=== PATIENT | male | born 1975 | race Caucasian/White ===

== ENCOUNTER 2016-09-12 09:06 | Inpatient (IN) | payer BC ==
[2016-09-12 09:52] VITALS: BMI 25.2
[2016-09-12] MEDS ORDERED: LOPERAMIDE HCL 2 MG CAPSULE PO PRN (11:24)
[2016-09-12] MEDS ORDERED: MAGNESIUM CITRATE 300 ML BOTTLE PO PRN (11:24)
[2016-09-12] MEDS ORDERED: NICOTINE POLACRILEX 2 MG GUM BUC PRN (11:24)
[2016-09-12] MEDS ORDERED: hydrOXYzine PAMOATE 50 MG CAPSULE (FP) PO PRN (11:24)
[2016-09-12] MEDS ORDERED: MAGNESIUM HYDROX 2400MG/30ML ORAL SUSPENSION 30 ML CUP PO PRN (11:24)
[2016-09-12] MEDS ORDERED: ACETAMINOPHEN 325 MG TABLET (FP) PO PRN (11:24)
[2016-09-12] MEDS ORDERED: guaiFENesin/D-METHORPHAN HB 10 ML UNIT-DOSE CUPS PO PRN (11:24)
[2016-09-12] MEDS ORDERED: MENTHOL/PHENOL 1 EACH UD MM PRN (11:24)
[2016-09-12] MEDS ORDERED: P-EPHED 60MG/TRIPROLIDI 2.5MG TABLET PO PRN (11:24)
[2016-09-12] MEDS ORDERED: ALBUTEROL SO4 6.7 GM HFA INHALER IH PRN (11:27)
--- NOTE | 2016-09-12 11:37 | HP ---
COWS - Scale Resting Pulse: 2= [place] 101-120 Sweatin=Flushed/Facial Moisture Restless Observation: 1= Difficult to Sit Still Pupil Size: 2= Moderately Dilated Bone or Joint Aches: 2= Severe Diffuse Aches Runny Nose/ Eye Tearin= Runny Nose/Eyes GI Upset > 30mins: 2= Nausea/Diarrhea Tremor Observation: 2= Slight Tremor Visible Yawning Observation: 1= 1-2x During Session Anxiety or Irritability: 2=Irritable/Anxious Goose Flesh Skin: 0=Smooth Skin COWS Score: 18 CIWA Score - CIWA Score Nausea/Vomitin-Mild Nausea/No Vomiting Muscle Tremors: 3 Anxiety: 2 Agitation: 2 Paroxysmal Sweats: 2 Orientation: 0-Oriented Tacttile Disturbances: 0-None Auditory Disturbances: 0-None Visual Disturbances: 0-None Headache: 0-None Present CIWA-Ar Total Score: 10 Admission ROS BHS - HPI Chief Complaint: Withdrawal sx. Allergies/Adverse Reactions: Allergies Allergy/AdvReac Type Severity Reaction Status Date / Time No Known Allergies Allergy Verified 09/12/16 11:09 History of Present Illness: 40 y/o man with a long hx. of drug & alcohol dependence is admitted for detox. Pt. has been in previous detox but relapsed shortly after d/c. Pt. does not want to be put on librium for alcohol detox because he does not drink that much, he'll take PRN valium. He had brain surgery in January 2016 for aneurysm. Exam Limitations: No Limitations - Ebola screening Have you traveled outside of the country in the last 21 days: No Have you had contact with anyone from an Ebola affected area: No Have you been sick,other than usual withdrawal symptoms: No Do you have a fever: No - Review of Systems Constitutional: Diaphoresis EENT: reports: Tearing, Nose Congestion Respiratory: reports: No Symptoms reported Cardiac: reports: No Symptoms Reported GI: reports: Nausea, Abdominal cramping : reports: No Symptoms Reported Musculoskeletal: reports: Back Pain, Joint Pain Integumentary: reports: Sweating Neuro: reports: Tremors, Unsteady Gait Endocrine: reports: No Symptoms Reported Hematology: reports: No Symptoms Reported Psychiatric: reports: No Sypmtoms Reported Other Systems: Reviewed and Negative Patient History - Patient Medical History Hx Anemia: No Hx Asthma: Yes Hx Chronic Obstructive Pulmonary Disease (COPD): No Hx Cancer: No Hx Cardiac Disorders: No Hx Congestive Heart Failure: No Hx Hypertension: No Hx Hypercholesterolemia: No Hx Pacemaker: No HX Cerebrovascular Accident: No Hx Seizures: No Hx Diabetes: No Hx Gastrointestinal Disorders: No Hx Liver Disease: No Hx Genitourinary Disorders: No Hx Sexually Transmitted Disorders: No Hx Renal Disease (ESRD): No Hx Thyroid Disease: No Hx Human Immunodeficiency Virus (HIV): No Hx Hepatitis C: No Hx Depression: No Hx Suicide Attempt: No Hx Bipolar Disorder: No Hx Schizophrenia: No Other Medical History: Brain aneurysm - Patient Surgical History Past Surgical History: Yes Hx Neurologic Surgery: Yes (brain sx in 01/2016) Hx Cataract Extraction: No Hx Cardiac Surgery: No Hx Lung Surgery: No Hx Breast Surgery: No Hx Breast Biopsy: No Hx Abdominal Surgery: No Hx Appendectomy: No Hx Cholecystectomy: No Hx Genitourinary Surgery: No Hx Section: No Hx Orthopedic Surgery: No Anesthesia Reaction: No - PPD History Previous Implant?: Yes Documented Results: Positive w/o proof Implanted On Prior R Admission?: No PPD to be Administered?: No - Smoking Cessation Smoking history: Current every day smoker Have you smoked in the past 12 months: Yes Aproximately how many cigarettes per day: 10 Hx Chewing Tobacco Use: No Initiated information on smoking cessation: No 'Breaking Loose' booklet given: 09/12/16 - Substance & Tx. History Hx Alcohol Use: Yes Hx Substance Use: Yes Substance Use Type: Alcohol, Cocaine, Heroin Hx Substance Use Treatment: Yes (Detox in [place]) - Substances Abused Heroin Route: Injection Frequency: Daily Amount used: 10 bags Age of first use: 38 Date of Last Use: 09/11/16 Cocaine Route: Injection Frequency: Daily Amount used: $50 Age of first use: 38 Date of Last Use: 09/11/16 Alcohol-beer Route: Oral Frequency: Daily Amount used: 2 (25 oz.) Age of first use: 14 Date of Last Use: 09/11/16 Family Disease History - Family Disease History Family History: Denies Admission Physical Exam BHS - Vital Signs Vital Signs: Vital Signs - 24 hr 09/12/16 09:49 Temperature 96 F L Pulse Rate 102 H Respiratory 20 Rate Blood Pressure 132/76 - Physical General Appearance: Yes: Tremorous, Irritable, Sweating, Anxious HEENTM: Yes: Nasal Congestion, Rhinorrhea Respiratory: Yes: Chest Non-Tender, Lungs Clear, Normal Breath Sounds Neck: Yes: Supple Breast: Yes: Breast Exam Deferred Cardiology: Yes: Regular Rhythm, Regular Rate, S1, S2 Abdominal: Yes: Normal Bowel Sounds, Non Tender, Soft Genitourinary: Yes: Within Normal Limits Back: Yes: Within Normal Limits Musculoskeletal: Yes: Within Normal Limits Extremities: Yes: Tremors Neurological: Yes: Fully Oriented, Alert Integumentary: Yes: Diaphoresis Lymphatic: Yes: Within Normal Limits - Diagnostic (1) Opioid dependence with withdrawal Current Visit: Yes Status: Acute (2) Alcohol dependence with uncomplicated withdrawal Current Visit: Yes Status: Acute (3) Cocaine dependence, uncomplicated Current Visit: Yes Status: Acute Cleared for Admission [facility] - Detox or Rehab [facility] Level of Care: Medically Managed Detox Regimen/Protocol: Methadone [facility] Breath Alcohol Content Breath Alcohol Content: 0 Urine Drug Screen - Results Drug Screen Negative: No Urine Drug Screen Results: SHAINA-Cocaine, OPI-Opiates, BZO-Benzodiazepines, MTD- Methadone, TCA-Tricyclic Antidepress
[2016-09-12] MEDS ORDERED: METHADONE HCL 10 MG TABLET (FOR DETOX USE ONLY) PO ONE ×2 (12:44→23:00)
[2016-09-12] MEDS: GABAPENTIN 400 MG CAPSULE (FP) PO SCH ×3 (13:12→22:55)
[2016-09-12] MEDS: diazePAM 5 MG TABLET PO PRN (13:12)
[2016-09-12] MEDS: NICOTINE 21 MG/24 HOURS TOPICAL PATCH TD SCH (13:14)
--- NOTE | 2016-09-12 15:07 | EKG ---
Test Reason : Blood Pressure : / mmHG Vent. Rate : 087 BPM Atrial Rate : 087 BPM P-R Int : 142 ms QRS Dur : 076 ms QT Int : 360 ms P-R-T Axes : 054 043 047 degrees QTc Int : 433 ms NORMAL SINUS RHYTHM NORMAL ECG NO PREVIOUS ECGS AVAILABLE Confirmed by JAMES ISRAEL MD ([id number]) on 09/12/2016 3:07:22 PM Referred By: Nicko Chavez Confirmed By:JAMES ISRAEL MD
[2016-09-12 15:32] LABS: URINE APPEARANCE CLEAR; URINE BILIRUBIN NEGATIVE (NEGATIVE); URINE BLOOD NEGATIVE (NEGATIVE); URINE COLOR YELLOW; URINE GLUCOSE (UA) NEGATIVE (NEGATIVE); URINE KETONE NEGATIVE (NEGATIVE); URINE LEUK ESTERASE NEGATIVE (NEGATIVE); URINE NITRITE NEGATIVE (NEGATIVE); URINE PROTEIN NEGATIVE (NEGATIVE)
[2016-09-12] MEDS: IBUPROFEN 400 MG TABLET (FP) PO PRN (17:29)
[2016-09-12] MEDS: THIAMINE HCL 100 MG TABLET (FP) PO SCH (22:55)
[2016-09-13] MEDS: diazePAM 5 MG TABLET PO PRN ×3 (06:32→22:20)
[2016-09-13 09:57] LABS: MCH 30.8 pg (25.7-33.7); MCHC 32.5 g/dl (32.0-35.9); MEAN CELL VOLUME 94.9 fl (80-96); MEAN PLT VOLUME 10.1 fl (7.5-11.1); PLATELET COUNT 242 K/MM3 (134-434); RDW 13.5 % (11.9-15.9); WHITE BLOOD COUNT 12.3 K/mm3 (4.0-10.0)
[2016-09-13] MEDS ORDERED: METHADONE HCL 10 MG TABLET (FOR DETOX USE ONLY) PO ONE (10:00)
[2016-09-13 10:15] LABS: ALBUMIN 3.7 g/dl (3.4-5.0); ALK PHOS 72 U/L (45-117); ANION GAP 6 (8-16); BILIRUBIN,TOTAL 0.8 mg/dL (0.2-1.0); CALCIUM 9.8 mg/dL (8.5-10.1); CO2 30 mmol/L (21-32); CREATININE 1.1 mg/dL (0.7-1.3); GLUCOSE,RANDOM 126 mg/dL (74-106); SGOT/AST 188 U/L (15-37); SGPT/ALT 284 U/L (12-78); TOT PROT 7.6 g/dl (6.4-8.2)
[2016-09-13] MEDS: GABAPENTIN 400 MG CAPSULE (FP) PO SCH ×4 (10:41→22:20)
[2016-09-13] MEDS: PRENATAL VITAMINS W/ FOLIC ACID TABLET (FP) PO SCH (10:41)
[2016-09-13] MEDS: NICOTINE 21 MG/24 HOURS TOPICAL PATCH TD SCH (10:42)
[2016-09-13 11:39] LABS: SICKLE CELL SCREEN NEGATIVE (NEGATIVE)
--- NOTE | 2016-09-13 12:16 | PN ---
[facility] CIWA - CIWA Score Nausea/Vomitin-No Nausea/No Vomiting Muscle Tremors: 4-Moderate,w/Arms Extend Anxiety: 4-Mod. Anxious/Guarded Agitation: 4-Moderately Restless Paroxysmal Sweats: 1-Minimal Palms Moist Orientation: 0-Oriented Tacttile Disturbances: 3-Moderate Itch/Numb/Burn Auditory Disturbances: 0-None Visual Disturbances: 0-None Headache: 0-None Present CIWA-Ar Total Score: 16 S COWS - Scale Resting Pulse: 2= [place] 101-120 Sweatin= Chills/Flushing Restless Observation: 3= Extraneous Movement Pupil Size: 2= Moderately Dilated Bone or Joint Aches: 4=Acute Joint/Muscle Pain Runny Nose/ Eye Tearin= Nasal Congestion GI Upset > 30mins: 1= Stomach Cramp Tremor Observation of Outstretched Hands: 1= Tremor [place], Not Seen Yawning Observation: 2= >3x During Session Anxiety or Irritability: 2=Irritable/Anxious Goose Flesh Skin: 0=Smooth Skin COWS Score: 19 [facility] Progress Note (SOAP) Subjective: ANXIETY,SWEATS,TREMORS, INTERMITTENT SLEEP Objective: 09/13/16 12:14 Vital Signs Temperature 97.1 F L 09/13/16 10:11 Pulse Rate 109 H 09/13/16 10:11 Respiratory Rate 16 09/13/16 10:11 Blood Pressure 111/72 09/13/16 10:11 O2 Sat by Pulse Oximetry (%) Laboratory Last Values WBC 12.3 K/mm3 (4.0-10.0) H 09/13/16 06:00 RBC 5.36 M/mm3 (4.00-5.60) 09/13/16 06:00 Hgb 16.5 GM/dL (11.7-16.9) 09/13/16 06:00 Hct 50.9 % (35.4-49) H 09/13/16 06:00 MCV 94.9 fl (80-96) 09/13/16 06:00 MCH 30.8 pg (25.7-33.7) 09/13/16 06:00 MCHC 32.5 g/dl (32.0-35.9) 09/13/16 06:00 RDW 13.5 % (11.9-15.9) 09/13/16 06:00 Plt Count 242 K/MM3 (134-434) 09/13/16 06:00 MPV 10.1 fl (7.5-11.1) 09/13/16 06:00 Sickle Cell Screen Negative (NEGATIVE) 09/13/16 06:00 Sodium 138 mmol/L (136-145) 09/13/16 06:00 Potassium 5.2 mmol/L (3.5-5.1) H 09/13/16 06:00 Chloride 102 mmol/L (98-107) 09/13/16 06:00 Carbon Dioxide 30 mmol/L (21-32) 09/13/16 06:00 Anion Gap 6 (8-16) L 09/13/16 06:00 BUN 21 mg/dL (7-18) H 09/13/16 06:00 Creatinine 1.1 mg/dL (0.7-1.3) 09/13/16 06:00 Creat Clearance w eGFR > 60 (>60) 09/13/16 06:00 Random Glucose 126 mg/dL (74-106) H 09/13/16 06:00 Calcium 9.8 mg/dL (8.5-10.1) 09/13/16 06:00 Total Bilirubin 0.8 mg/dL (0.2-1.0) 09/13/16 06:00 AST 188 U/L (15-37) H 09/13/16 06:00 ALT 284 U/L (12-78) H 09/13/16 06:00 Alkaline Phosphatase 72 U/L (45-117) 09/13/16 06:00 Total Protein 7.6 g/dl (6.4-8.2) 09/13/16 06:00 Albumin 3.7 g/dl (3.4-5.0) 09/13/16 06:00 Urine Color Yellow 09/12/16 13:00 Urine Appearance Clear 09/12/16 13:00 Urine pH 6.0 (5.0-8.0) 09/12/16 13:00 Ur Specific [place] 1.025 (1.005-1.025) 09/12/16 13:00 Urine Protein Negative (NEGATIVE) 09/12/16 13:00 Urine Glucose (UA) Negative (NEGATIVE) 09/12/16 13:00 Urine Ketones Negative (NEGATIVE) 09/12/16 13:00 Urine Blood Negative (NEGATIVE) 09/12/16 13:00 Urine Nitrite Negative (NEGATIVE) 09/12/16 13:00 Urine Bilirubin Negative (NEGATIVE) 09/12/16 13:00 Urine Urobilinogen 2.0 mg/dL (0.2-1.0) 09/12/16 13:00 Ur Leukocyte Esterase Negative (NEGATIVE) 09/12/16 13:00 LABS NOTED. K+ = 5.2; AST/ALT ELEVATIONS Assessment: 09/13/16 12:16 WITHDRAWAL SX Plan: CONTINUE DETOX INCREASE PO FLUIDS
[2016-09-13] MEDS: IBUPROFEN 400 MG TABLET (FP) PO PRN (14:13)
[2016-09-13] MEDS: THIAMINE HCL 100 MG TABLET (FP) PO SCH (22:20)
[2016-09-13] MEDS: CYCLOBENZAPRINE HCL 10 MG TABLET (FP) PO PRN (22:20)
[2016-09-14] MEDS ORDERED: METHADONE HCL 5 MG TABLET (FOR DETOX USE ONLY) PO ONE (10:00)
[2016-09-14 10:02] LABS: MCH 31.2 pg (25.7-33.7); MCHC 33.3 g/dl (32.0-35.9); MEAN CELL VOLUME 93.6 fl (80-96); MEAN PLT VOLUME 9.5 fl (7.5-11.1); PLATELET COUNT 195 K/MM3 (134-434); RDW 13.2 % (11.9-15.9); WHITE BLOOD COUNT 5.3 K/mm3 (4.0-10.0)
[2016-09-14 10:27] LABS: ALBUMIN 2.7 g/dl (3.4-5.0); ALK PHOS 62 U/L (45-117); ANION GAP 3 (8-16); BILIRUBIN,TOTAL 0.3 mg/dL (0.2-1.0); CALCIUM 8.3 mg/dL (8.5-10.1); CO2 28 mmol/L (21-32); CREATININE 0.7 mg/dL (0.7-1.3); GLUCOSE,RANDOM 99 mg/dL (74-106); SGOT/AST 172 U/L (15-37); SGPT/ALT 294 U/L (12-78)
[2016-09-14] MEDS: PRENATAL VITAMINS W/ FOLIC ACID TABLET (FP) PO SCH (10:31)
[2016-09-14] MEDS: GABAPENTIN 400 MG CAPSULE (FP) PO SCH ×4 (10:31→22:08)
[2016-09-14] MEDS: NICOTINE 21 MG/24 HOURS TOPICAL PATCH TD SCH (10:32)
[2016-09-14] MEDS: CYCLOBENZAPRINE HCL 10 MG TABLET (FP) PO PRN ×2 (13:33→22:08)
[2016-09-14] MEDS: IBUPROFEN 400 MG TABLET (FP) PO PRN (13:33)
[2016-09-14] MEDS: MAG HYDROX/AL HYDROX/SIMETH 30 ML UNIT-DOSE CUP PO PRN (13:34)
[2016-09-14] MEDS: diazePAM 5 MG TABLET PO PRN (17:42)
--- NOTE | 2016-09-14 18:05 | PN ---
[facility] CIWA - CIWA Score Nausea/Vomitin-No Nausea/No Vomiting Muscle Tremors: 4-Moderate,w/Arms Extend Anxiety: 3 Agitation: 1-Slight > Activity Paroxysmal Sweats: 3 Orientation: 4Disoriented Place/Person Tacttile Disturbances: 0-None Auditory Disturbances: 0-None Visual Disturbances: 2-Mild Sensitivity Headache: 3-Moderate CIWA-Ar Total Score: 20 [facility] COWS - Scale Resting Pulse: 1= [place] [id number] Sweatin=Flushed/Facial Moisture Restless Observation: 1= Difficult to Sit Still Pupil Size: 0= Normal to Room Light Bone or Joint Aches: 2= Severe Diffuse Aches Runny Nose/ Eye Tearin= Runny Nose/Eyes GI Upset > 30mins: 1= Stomach Cramp Tremor Observation of Outstretched Hands: 2= Slight Tremor Visible Yawning Observation: 1= 1-2x During Session Anxiety or Irritability: 2=Irritable/Anxious Goose Flesh Skin: 3=Piloerection COWS Score: 17 [facility] Progress Note (SOAP) Subjective: Tremors, H/A, Sweating, Body Aches. Objective: PT. A & O X (DISORIENTED ABOUT CURRENT LOCATION). PT. OBSERVED AMBULATING ON UNIT. NO ACUTE DISTRESS. 09/14/16 18:03 Vital Signs Temperature 97.5 F L 09/14/16 18:02 Pulse Rate 87 09/14/16 18:02 Respiratory Rate 18 09/14/16 18:02 Blood Pressure 109/60 09/14/16 18:02 O2 Sat by Pulse Oximetry (%) Laboratory Tests 09/12/16 09/13/16 09/13/16 13:00 06:00 06:00 WBC 12.3 H RBC 5.36 Hgb 16.5 Hct 50.9 H MCV 94.9 MCH 30.8 MCHC 32.5 RDW 13.5 Plt Count 242 MPV 10.1 Sickle Cell Screen Negative Sodium 138 Potassium 5.2 H Chloride 102 Carbon Dioxide 30 Anion Gap 6 L BUN 21 H Creatinine 1.1 Creat Clearance w eGFR > 60 Random Glucose 126 H Calcium 9.8 Total Bilirubin 0.8 AST 188 H ALT 284 H Alkaline Phosphatase 72 Total Protein 7.6 Albumin 3.7 Urine Color Yellow Urine Appearance Clear Urine pH 6.0 Ur Specific [place] 1.025 Urine Protein Negative Urine Glucose (UA) Negative Urine Ketones Negative Urine Blood Negative Urine Nitrite Negative Urine Bilirubin Negative Urine Urobilinogen 2.0 Ur Leukocyte Esterase Negative RPR Titer 09/13/16 09/14/16 09/14/16 06:00 08:00 08:00 WBC 5.3 D RBC 4.75 Hgb 14.8 D Hct 44.5 MCV 93.6 MCH 31.2 MCHC 33.3 RDW 13.2 Plt Count 195 MPV 9.5 Sickle Cell Screen Sodium 138 Potassium 4.4 Chloride 107 Carbon Dioxide 28 Anion Gap 3 L BUN 11 D Creatinine 0.7 D Creat Clearance w eGFR > 60 Random Glucose 99 D Calcium 8.3 L Total Bilirubin 0.3 D AST 172 H ALT 294 H Alkaline Phosphatase 62 Total Protein 6.0 L D Albumin 2.7 L D Urine Color Urine Appearance Urine pH Ur Specific [place] Urine Protein Urine Glucose (UA) Urine Ketones Urine Blood Urine Nitrite Urine Bilirubin Urine Urobilinogen Ur Leukocyte Esterase RPR Titer Nonreactive LABS NOTED. RESULTS OF REPEAT CBC AND COMP. META. NOTED. 09/14/16 18:07 Assessment: 09/14/16 18:04 WITHDRAWAL SYMPTOMS. Plan: CONTINUE DETOX.
[2016-09-14] MEDS: THIAMINE HCL 100 MG TABLET (FP) PO SCH (22:07)
[2016-09-15] MEDS: diazePAM 5 MG TABLET PO PRN ×2 (06:01→10:24)
[2016-09-15] MEDS: CYCLOBENZAPRINE HCL 10 MG TABLET (FP) PO PRN (06:02)
[2016-09-15] MEDS ORDERED: METHADONE HCL 5 MG TABLET (FOR DETOX USE ONLY) PO ONE (10:00)
[2016-09-15] MEDS: NICOTINE 21 MG/24 HOURS TOPICAL PATCH TD SCH (10:22)
[2016-09-15] MEDS: GABAPENTIN 400 MG CAPSULE (FP) PO SCH ×4 (10:22→22:13)
[2016-09-15] MEDS: PRENATAL VITAMINS W/ FOLIC ACID TABLET (FP) PO SCH (10:22)
[2016-09-15] MEDS: MAG HYDROX/AL HYDROX/SIMETH 30 ML UNIT-DOSE CUP PO PRN (12:30)
--- NOTE | 2016-09-15 15:22 | PN ---
[facility] Progress Note (SOAP) Subjective: Tremor, diarrhea, back pain, chills, interrupted sleep Objective: 09/15/16 15:20 Last Vital Signs Temp Pulse Resp BP Pulse Ox 97.3 F L 101 H 20 121/73 09/15/16 14:53 09/15/16 14:53 09/15/16 14:53 09/15/16 14:53 Laboratory Tests 09/12/16 09/13/16 09/13/16 13:00 06:00 06:00 WBC 12.3 H RBC 5.36 Hgb 16.5 Hct 50.9 H MCV 94.9 MCH 30.8 MCHC 32.5 RDW 13.5 Plt Count 242 MPV 10.1 Sickle Cell Screen Negative Sodium 138 Potassium 5.2 H Chloride 102 Carbon Dioxide 30 Anion Gap 6 L BUN 21 H Creatinine 1.1 Creat Clearance w eGFR > 60 Random Glucose 126 H Calcium 9.8 Total Bilirubin 0.8 AST 188 H ALT 284 H Alkaline Phosphatase 72 Total Protein 7.6 Albumin 3.7 Urine Color Yellow Urine Appearance Clear Urine pH 6.0 Ur Specific [place] 1.025 Urine Protein Negative Urine Glucose (UA) Negative Urine Ketones Negative Urine Blood Negative Urine Nitrite Negative Urine Bilirubin Negative Urine Urobilinogen 2.0 Ur Leukocyte Esterase Negative RPR Titer 09/13/16 09/14/16 09/14/16 06:00 08:00 08:00 WBC 5.3 D RBC 4.75 Hgb 14.8 D Hct 44.5 MCV 93.6 MCH 31.2 MCHC 33.3 RDW 13.2 Plt Count 195 MPV 9.5 Sickle Cell Screen Sodium 138 Potassium 4.4 Chloride 107 Carbon Dioxide 28 Anion Gap 3 L BUN 11 D Creatinine 0.7 D Creat Clearance w eGFR > 60 Random Glucose 99 D Calcium 8.3 L Total Bilirubin 0.3 D AST 172 H ALT 294 H Alkaline Phosphatase 62 Total Protein 6.0 L D Albumin 2.7 L D Urine Color Urine Appearance Urine pH Ur Specific [place] Urine Protein Urine Glucose (UA) Urine Ketones Urine Blood Urine Nitrite Urine Bilirubin Urine Urobilinogen Ur Leukocyte Esterase RPR Titer Nonreactive Labs noted Assessment: 09/15/16 15:21 Withdrawal symptoms Plan: Continue detox Encouraged to drink lots of water
[2016-09-15] MEDS: THIAMINE HCL 100 MG TABLET (FP) PO SCH (22:13)
[2016-09-15] MEDS: diphenhydrAMINE HCL 50 MG CAPSULE PO PRN (22:14)
[2016-09-16] MEDS ORDERED: METHADONE HCL 10 MG TABLET (FOR DETOX USE ONLY) PO ONE (10:00)
[2016-09-16] MEDS: PRENATAL VITAMINS W/ FOLIC ACID TABLET (FP) PO SCH (10:31)
[2016-09-16] MEDS: NICOTINE 21 MG/24 HOURS TOPICAL PATCH TD SCH (10:31)
[2016-09-16] MEDS: GABAPENTIN 400 MG CAPSULE (FP) PO SCH ×4 (10:31→22:18)
--- NOTE | 2016-09-16 10:43 | PN ---
[facility] Progress Note (SOAP) Subjective: Sweating,interrupted sleep,restless Objective: 09/16/16 10:42 Vital Signs - 8 hr 09/16/16 09/16/16 09/16/16 03:25 07:25 09:16 Temperature 98.4 F 96.5 F L Pulse Rate 92 H 62 Respiratory 18 18 18 Rate Blood Pressure 116/79 140/88 Laboratory Last Values WBC 5.3 K/mm3 (4.0-10.0) D 09/14/16 08:00 RBC 4.75 M/mm3 (4.00-5.60) 09/14/16 08:00 Hgb 14.8 GM/dL (11.7-16.9) D 09/14/16 08:00 Hct 44.5 % (35.4-49) 09/14/16 08:00 MCV 93.6 fl (80-96) 09/14/16 08:00 MCH 31.2 pg (25.7-33.7) 09/14/16 08:00 MCHC 33.3 g/dl (32.0-35.9) 09/14/16 08:00 RDW 13.2 % (11.9-15.9) 09/14/16 08:00 Plt Count 195 K/MM3 (134-434) 09/14/16 08:00 MPV 9.5 fl (7.5-11.1) 09/14/16 08:00 Sickle Cell Screen Negative (NEGATIVE) 09/13/16 06:00 Sodium 138 mmol/L (136-145) 09/14/16 08:00 Potassium 4.4 mmol/L (3.5-5.1) 09/14/16 08:00 Chloride 107 mmol/L (98-107) 09/14/16 08:00 Carbon Dioxide 28 mmol/L (21-32) 09/14/16 08:00 Anion Gap 3 (8-16) L 09/14/16 08:00 BUN 11 mg/dL (7-18) D 09/14/16 08:00 Creatinine 0.7 mg/dL (0.7-1.3) D 09/14/16 08:00 Creat Clearance w eGFR > 60 (>60) 09/14/16 08:00 Random Glucose 99 mg/dL (74-106) D 09/14/16 08:00 Calcium 8.3 mg/dL (8.5-10.1) L 09/14/16 08:00 Total Bilirubin 0.3 mg/dL (0.2-1.0) D 09/14/16 08:00 AST 172 U/L (15-37) H 09/14/16 08:00 ALT 294 U/L (12-78) H 09/14/16 08:00 Alkaline Phosphatase 62 U/L (45-117) 09/14/16 08:00 Total Protein 6.0 g/dl (6.4-8.2) L D 09/14/16 08:00 Albumin 2.7 g/dl (3.4-5.0) L D 09/14/16 08:00 Urine Color Yellow 09/12/16 13:00 Urine Appearance Clear 09/12/16 13:00 Urine pH 6.0 (5.0-8.0) 09/12/16 13:00 Ur Specific [place] 1.025 (1.005-1.025) 09/12/16 13:00 Urine Protein Negative (NEGATIVE) 09/12/16 13:00 Urine Glucose (UA) Negative (NEGATIVE) 09/12/16 13:00 Urine Ketones Negative (NEGATIVE) 09/12/16 13:00 Urine Blood Negative (NEGATIVE) 09/12/16 13:00 Urine Nitrite Negative (NEGATIVE) 09/12/16 13:00 Urine Bilirubin Negative (NEGATIVE) 09/12/16 13:00 Urine Urobilinogen 2.0 mg/dL (0.2-1.0) 09/12/16 13:00 Ur Leukocyte Esterase Negative (NEGATIVE) 09/12/16 13:00 RPR Titer Nonreactive (NONREACTIVE) 09/13/16 06:00 labs noted Assessment: 09/16/16 10:42 Withdrawal sx. Plan: Continue detox
--- NOTE | 2016-09-16 12:22 | PN ---
S Progress Note Note: Occurred on 09/12/16, late entry. Pt. twisted his left ankle and fell on his back. Pt. did not hit his head during incident. Exam : normal ROM left ankle, c/o slight pain during manipulation. X-ray of left ankle is negative for fracture.
[2016-09-16] MEDS: THIAMINE HCL 100 MG TABLET (FP) PO SCH (22:17)
[2016-09-16] MEDS: diphenhydrAMINE HCL 50 MG CAPSULE PO PRN (22:18)
[2016-09-17] MEDS: CYCLOBENZAPRINE HCL 10 MG TABLET (FP) PO PRN ×2 (05:41→17:18)
[2016-09-17] MEDS ORDERED: METHADONE HCL 5 MG TABLET (FOR DETOX USE ONLY) PO ONE (06:00)
[2016-09-17] MEDS: GABAPENTIN 400 MG CAPSULE (FP) PO SCH ×3 (09:06→17:16)
[2016-09-17] MEDS: PRENATAL VITAMINS W/ FOLIC ACID TABLET (FP) PO SCH (09:06)
[2016-09-17] MEDS: NICOTINE 21 MG/24 HOURS TOPICAL PATCH TD SCH (09:06)
--- NOTE | 2016-09-17 10:50 | DS ---
[facility] Detox Discharge Summary Admission Date: 09/12/16 Discharge Date: 09/17/16 - History Present History: Alcohol Dependence, Cocaine Dependence, Opioid Dependence Pertinent Past History: Asthma Brain aneurysm - Physical Exam Results Vital Signs: Vital Signs Temperature 97.6 F 09/17/16 09:35 Pulse Rate 94 H 09/17/16 09:35 Respiratory Rate 16 09/17/16 09:35 Blood Pressure 126/78 09/17/16 09:35 O2 Sat by Pulse Oximetry (%) Pertinent Admission Physical Exam Findings: Withdrawal sx Laboratory Last Values WBC 5.3 K/mm3 (4.0-10.0) D 09/14/16 08:00 RBC 4.75 M/mm3 (4.00-5.60) 09/14/16 08:00 Hgb 14.8 GM/dL (11.7-16.9) D 09/14/16 08:00 Hct 44.5 % (35.4-49) 09/14/16 08:00 MCV 93.6 fl (80-96) 09/14/16 08:00 MCH 31.2 pg (25.7-33.7) 09/14/16 08:00 MCHC 33.3 g/dl (32.0-35.9) 09/14/16 08:00 RDW 13.2 % (11.9-15.9) 09/14/16 08:00 Plt Count 195 K/MM3 (134-434) 09/14/16 08:00 MPV 9.5 fl (7.5-11.1) 09/14/16 08:00 Sickle Cell Screen Negative (NEGATIVE) 09/13/16 06:00 Sodium 138 mmol/L (136-145) 09/14/16 08:00 Potassium 4.4 mmol/L (3.5-5.1) 09/14/16 08:00 Chloride 107 mmol/L (98-107) 09/14/16 08:00 Carbon Dioxide 28 mmol/L (21-32) 09/14/16 08:00 Anion Gap 3 (8-16) L 09/14/16 08:00 BUN 11 mg/dL (7-18) D 09/14/16 08:00 Creatinine 0.7 mg/dL (0.7-1.3) D 09/14/16 08:00 Creat Clearance w eGFR > 60 (>60) 09/14/16 08:00 Random Glucose 99 mg/dL (74-106) D 09/14/16 08:00 Calcium 8.3 mg/dL (8.5-10.1) L 09/14/16 08:00 Total Bilirubin 0.3 mg/dL (0.2-1.0) D 09/14/16 08:00 AST 172 U/L (15-37) H 09/14/16 08:00 ALT 294 U/L (12-78) H 09/14/16 08:00 Alkaline Phosphatase 62 U/L (45-117) 09/14/16 08:00 Total Protein 6.0 g/dl (6.4-8.2) L D 09/14/16 08:00 Albumin 2.7 g/dl (3.4-5.0) L D 09/14/16 08:00 Urine Color Yellow 09/12/16 13:00 Urine Appearance Clear 09/12/16 13:00 Urine pH 6.0 (5.0-8.0) 09/12/16 13:00 Ur Specific [place] 1.025 (1.005-1.025) 09/12/16 13:00 Urine Protein Negative (NEGATIVE) 09/12/16 13:00 Urine Glucose (UA) Negative (NEGATIVE) 09/12/16 13:00 Urine Ketones Negative (NEGATIVE) 09/12/16 13:00 Urine Blood Negative (NEGATIVE) 09/12/16 13:00 Urine Nitrite Negative (NEGATIVE) 09/12/16 13:00 Urine Bilirubin Negative (NEGATIVE) 09/12/16 13:00 Urine Urobilinogen 2.0 mg/dL (0.2-1.0) 09/12/16 13:00 Ur Leukocyte Esterase Negative (NEGATIVE) 09/12/16 13:00 RPR Titer Nonreactive (NONREACTIVE) 09/13/16 06:00 labs noted - Treatment Hospital Course: Detox Protocol Followed, Detoxed Safely, Responded well, Discharged Condition Good, Rehab Referral Accepted Patient has Accepted a Rehab Referral to: Rehab at [facility] - Medication Discharge Medications: Ambulatory Orders Albuterol Sulfate Inhaler - [Ventolin Hfa Inhaler -] 2 inh PO Q4H PRN 09/12/16 Cyclobenzaprine HCl [Flexeril 10 mg] 10 mg PO BID PRN 09/12/16 Gabapentin [Neurontin -] 800 mg PO BID 09/12/16 - Diagnosis (1) Opioid dependence with withdrawal Current Visit: Yes Status: Acute (2) Alcohol dependence with uncomplicated withdrawal Current Visit: Yes Status: Acute (3) Cocaine dependence, uncomplicated Current Visit: Yes Status: Acute (4) History of asthma Current Visit: Yes Status: Chronic (5) Brain aneurysm Current Visit: Yes Status: Resolved - AMA Did Patient Leave Against Medical Advice: No
[2016-09-17 17:31] VITALS: BP 117/70; PULSE 92; TEMP 97.8
== END 2016-09-17 17:42 | disposition other institution (70) | DRG 897 ==
LOC: YASAS 09:06 → Y3N 12:39
PROVIDERS: ADMIT Internal Medicine; ATTEND Internal Medicine
PROC: HZ2ZZZZ Detoxification Services for Substance Abuse Treatment (ICD-10-PCS; principal; 2016-09-12)
DX: F11.23 Opioid dependence with withdrawal (principal); F14.20 Cocaine dependence, uncomplicated; F10.230 Alcohol dependence with withdrawal, uncomplicated; F17.210 Nicotine dependence, cigarettes, uncomplicated; J45.909 Unspecified asthma, uncomplicated; R74.0 Nonspecific elevation of levels of transaminase and lactic acid dehydrogenase [LDH]; Z86.79 Personal history of other diseases of the circulatory system; W19.XXXA Unspecified fall, initial encounter; Y93.9 Activity, unspecified; Y92.239 Unspecified place in hospital as the place of occurrence of the external cause
CPT/HCPCS: 36415; 71010-TC; 73610-TC-LT; 73630-TC-LT; 80053; 81003; 85027; 85660; 86593; 93005; 93010

== ENCOUNTER 2016-09-17 17:48 | Inpatient (IN) | payer BC ==
[2016-09-17 20:25] VITALS: BMI 25.8
[2016-09-17] MEDS ORDERED: P-EPHED 60MG/TRIPROLIDI 2.5MG TABLET PO PRN (21:01)
[2016-09-17] MEDS ORDERED: MAGNESIUM HYDROX 2400MG/30ML ORAL SUSPENSION 30 ML CUP PO PRN (21:01)
[2016-09-17] MEDS ORDERED: LOPERAMIDE HCL 2 MG CAPSULE PO PRN (21:01)
[2016-09-17] MEDS ORDERED: MAGNESIUM CITRATE 300 ML BOTTLE PO PRN (21:01)
[2016-09-17] MEDS ORDERED: ACETAMINOPHEN 325 MG TABLET (FP) PO PRN (21:01)
[2016-09-17] MEDS ORDERED: MAG HYDROX/AL HYDROX/SIMETH 30 ML UNIT-DOSE CUP PO PRN (21:01)
[2016-09-17] MEDS ORDERED: MENTHOL/PHENOL 1 EACH UD MM PRN (21:01)
[2016-09-17] MEDS ORDERED: IBUPROFEN 400 MG TABLET (FP) PO PRN (21:01)
[2016-09-17] MEDS ORDERED: hydrOXYzine PAMOATE 50 MG CAPSULE (FP) PO PRN (21:01)
[2016-09-17] MEDS ORDERED: guaiFENesin/D-METHORPHAN HB 10 ML UNIT-DOSE CUPS PO PRN (21:01)
[2016-09-17] MEDS ORDERED: ALBUTEROL SO4 6.7 GM HFA INHALER IH PRN (21:27)
--- NOTE | 2016-09-17 21:30 | HP ---
[facility] Re[facility] Assess/Revision - Admission History Admitted to Rehab from: [facility] Date of Admission to Rehab: 09/17/2016 - Vital signs Vital Signs: Vital Signs Period Temp Pulse Resp BP Sys/Phelan Pulse Ox Last 24 Hr 98.0 F 97 18 119/72 - Findings Detox History & Physical reviewed: Yes Concur with findings: Yes Comments/Additional Findings: Per protocol, transfer to rehab.
[2016-09-17] MEDS: THIAMINE HCL 100 MG TABLET (FP) PO SCH (21:54)
[2016-09-17] MEDS: GABAPENTIN 400 MG CAPSULE (FP) PO SCH (21:55)
[2016-09-17] MEDS: diphenhydrAMINE HCL 50 MG CAPSULE PO PRN (21:56)
[2016-09-17] MEDS: CYCLOBENZAPRINE HCL 10 MG TABLET (FP) PO PRN (21:56)
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
[2016-09-18] MEDS: GABAPENTIN 400 MG CAPSULE (FP) PO SCH ×2 (10:29→21:02)
[2016-09-18] MEDS: PRENATAL VITAMINS W/ FOLIC ACID TABLET (FP) PO SCH (10:29)
[2016-09-18] MEDS: traZODone HCL 100 MG TABLET (FP) PO SCH (21:00)
[2016-09-18] MEDS: THIAMINE HCL 100 MG TABLET (FP) PO SCH (21:00)
[2016-09-18] MEDS: CYCLOBENZAPRINE HCL 10 MG TABLET (FP) PO PRN (21:01)
[2016-09-19] MEDS: PRENATAL VITAMINS W/ FOLIC ACID TABLET (FP) PO SCH (10:29)
[2016-09-19] MEDS: GABAPENTIN 400 MG CAPSULE (FP) PO SCH ×2 (10:30→21:08)
[2016-09-19] MEDS: traZODone HCL 100 MG TABLET (FP) PO SCH (21:08)
[2016-09-19] MEDS: THIAMINE HCL 100 MG TABLET (FP) PO SCH (21:08)
[2016-09-19] MEDS: diphenhydrAMINE HCL 50 MG CAPSULE PO PRN (21:09)
[2016-09-20] MEDS: PRENATAL VITAMINS W/ FOLIC ACID TABLET (FP) PO SCH (10:30)
[2016-09-20] MEDS: GABAPENTIN 400 MG CAPSULE (FP) PO SCH ×2 (10:30→21:40)
[2016-09-20] MEDS: THIAMINE HCL 100 MG TABLET (FP) PO SCH (21:39)
[2016-09-20] MEDS: traZODone HCL 100 MG TABLET (FP) PO SCH (21:40)
[2016-09-20] MEDS: diphenhydrAMINE HCL 50 MG CAPSULE PO PRN (21:40)
[2016-09-21] MEDS: GABAPENTIN 400 MG CAPSULE (FP) PO SCH ×2 (10:00→21:11)
[2016-09-21] MEDS: PRENATAL VITAMINS W/ FOLIC ACID TABLET (FP) PO SCH (10:00)
[2016-09-21] MEDS: THIAMINE HCL 100 MG TABLET (FP) PO SCH (21:11)
[2016-09-21] MEDS: diphenhydrAMINE HCL 50 MG CAPSULE PO PRN (21:12)
[2016-09-21] MEDS: traZODone HCL 100 MG TABLET (FP) PO SCH (21:12)
[2016-09-22] MEDS: GABAPENTIN 400 MG CAPSULE (FP) PO SCH ×2 (09:52→21:20)
[2016-09-22] MEDS: PRENATAL VITAMINS W/ FOLIC ACID TABLET (FP) PO SCH (09:52)
[2016-09-22] MEDS ORDERED: NICOTINE POLACRILEX 2 MG GUM BUC PRN (19:59)
[2016-09-22] MEDS: NICOTINE 21 MG/24 HOURS TOPICAL PATCH TD SCH (21:19)
[2016-09-22] MEDS: THIAMINE HCL 100 MG TABLET (FP) PO SCH (21:19)
[2016-09-22] MEDS: traZODone HCL 100 MG TABLET (FP) PO SCH (21:20)
[2016-09-22] MEDS: diphenhydrAMINE HCL 50 MG CAPSULE PO PRN (21:22)
[2016-09-23 06:47] VITALS: BP 117/77; PULSE 83; TEMP 97.9
--- NOTE | 2016-09-23 09:09 | PN ---
Psychiatric Progress Note Vital Signs: Vital Signs Period Temp Pulse Resp BP Sys/Phelan Pulse Ox Last 24 Hr 97.9 F 83 18-18 117/77 Date of Session: 09/23/16 Chief Complaint:: AMA Discharge Note HPI: Patient addressing Alcohol, Opoid and Cocaine Dependence comorbid with Nicotine Dependence and Substance-Induced Mood Disorder ROS: Asthma, +PPD were medically managed Current Medications: Active Medications Generic Name Dose Route Start Last Admin Trade Name Freq PRN Reason Stop Dose Admin Acetaminophen 650 mg 09/17/16 21:01 Tylenol - PO Q4H PRN FEVER OR PAIN Al Hydroxide/Mg Hydroxide 30 ml 09/17/16 21:01 Mylanta Oral Suspension - PO Q6H PRN DYSPEPSIA Albuterol Sulfate 2 puff 09/17/16 21:27 Ventolin Hfa Inhaler - IH Q4H PRN ASTHMA Cyclobenzaprine HCl 10 mg 09/17/16 21:02 09/18/16 21:01 Flexeril - PO 10 mg TID PRN Administration MUSCLE SPASMS Diphenhydramine HCl 50 mg 09/17/16 21:01 09/22/16 21:22 Benadryl - PO 50 mg HSMR1 PRN Administration FOR ITCHING Eucalyptus/Menthol/Phenol/Sorbitol 1 each 09/17/16 21:01 Cepastat Lozenge - MM Q4H PRN SORE THROAT Gabapentin 800 mg 09/17/16 22:00 09/22/16 21:20 Neurontin - PO 800 mg BID VIVIANA Administration Guaifenesin 10 ml 09/17/16 21:01 Robitussin Dm - PO Q6H PRN COUGH Hydroxyzine Pamoate 50 mg 09/17/16 21:01 Vistaril - PO Q4H PRN AGITATION Ibuprofen 400 mg 09/17/16 21:01 Motrin - PO Q6H PRN PAIN Loperamide HCl 4 mg 09/17/16 21:01 Imodium - PO Q6H PRN DIARRHEA Magnesium Hydroxide 30 ml 09/17/16 21:01 Milk Of Magnesia - PO DAILY PRN CONSTIPATION Nicotine 21 mg 09/22/16 20:00 09/22/16 21:19 Nicoderm Patch - TD 21 mg DAILY VIVIANA Administration Nicotine Polacrilex 2 mg 09/22/16 19:59 Nicorette Gum - BUC Q2H PRN NICOTINE REPLACEMENT RX Multivit/Folic Acid/Iron 1 tab 09/18/16 10:00 09/22/16 09:52 Vitamins (Sjr) - PO 1 tab DAILY VIVIANA Administration Pseudoephedrine/Triprolidine 1 combo 09/17/16 21:01 Actifed - PO TID PRN NASAL CONGESTION Thiamine HCl 100 mg 09/17/16 22:00 09/22/16 21:19 Vitamin B1 - PO 100 mg HS VIVIANA Administration Trazodone HCl 100 mg 09/18/16 22:00 09/22/16 21:20 Desyrel - PO 100 mg HS VIVIANA Administration Current Side Effect: No Lab tests ordered: Yes Lab tests reviewed: Yes Provider note:: Patient has not completed this program. He wants to leave against medical advice because;" I feel racially violated by my counselor". He is determined to sign out AMA despite encouragement to stay and complete this program.He is stable for leaving AMA Total face to face time:: 25 Mental Status Exam - Mental Status Exam Alert and Oriented to: Time, Place, Person Cognitive Function: Fair Patient Appearance: Well Groomed Mood: Hopeful, Euthymic Affect: Appropriate Patient Behavior: Cooperative Speech Pattern: Clear Voice Loudness: Normal Thought Process: Intact, Goal Oriented Thought Disorder: Not Present Hallucinations: Denies Suicidal Ideation: Denies Homicidal Ideation: Denies Insight/Judgement: Fair Sleep: Fair Appetite: Good Muscle strength/Tone: Normal Gait/Station: Normal Psychiatric Treatment Plan - Problem List (1) Alcohol dependence Current Visit: Yes (2) Opioid dependence Current Visit: Yes (3) Cocaine dependence Current Visit: Yes (4) Nicotine dependence Current Visit: Yes (5) Substance induced mood disorder Current Visit: Yes (6) MDD (major depressive disorder) Current Visit: Yes (7) History of asthma Current Visit: No (8) PPD positive Current Visit: Yes (9) Brain aneurysm Current Visit: Yes (10) S/P brain surgery Current Visit: Yes Initial treatment plan: Patient is discharged AMA
[2016-09-23] MEDS: GABAPENTIN 400 MG CAPSULE (FP) PO SCH (09:18)
[2016-09-23] MEDS: PRENATAL VITAMINS W/ FOLIC ACID TABLET (FP) PO SCH (09:18)
[2016-09-23] MEDS: NICOTINE 21 MG/24 HOURS TOPICAL PATCH TD SCH (09:21)
== END 2016-09-23 10:10 | disposition left against medical advice (07) | DRG 894 ==
LOC: YASAS 17:48 → Y3W 17:49
PROVIDERS: ADMIT Psychiatry & Neurology Psychiatry; ATTEND Psychiatry & Neurology Psychiatry
PROC: HZ42ZZZ Group Counseling for Substance Abuse Treatment, Cognitive-Behavioral (ICD-10-PCS; principal; 2016-09-17)
DX: F11.20 Opioid dependence, uncomplicated (principal); F14.20 Cocaine dependence, uncomplicated; F33.9 Major depressive disorder, recurrent, unspecified; F10.20 Alcohol dependence, uncomplicated; F17.210 Nicotine dependence, cigarettes, uncomplicated; F19.24 Other psychoactive substance dependence with psychoactive substance-induced mood disorder; J45.909 Unspecified asthma, uncomplicated; R76.11 Nonspecific reaction to tuberculin skin test without active tuberculosis; Z86.79 Personal history of other diseases of the circulatory system

== ENCOUNTER 2023-04-04 22:22 | Inpatient (IN) | payer OTHER ==
[2023-04-04 13:50] VITALS: BMI 22.8
[2023-04-05] MEDS ORDERED: guaiFENesin 600 MG TABLET.ER (FP) PO PRN (02:14)
[2023-04-05] MEDS ORDERED: NICOTINE POLACRILEX 2 MG GUM BUC PRN (02:14)
[2023-04-05] MEDS ORDERED: ACETAMINOPHEN 325 MG TABLET (FP) PO PRN (02:14)
[2023-04-05] MEDS ORDERED: NALOXONE HCL (KLOXXADO) 8 MG SPRAY NS PRN (02:14)
[2023-04-05] MEDS ORDERED: POLYETHYLENE GLYCOL (HEALTHYLAX) 3350 17 GM PACKET PO PRN (02:14)
[2023-04-05] MEDS ORDERED: NALOXONE HCL 0.4 MG/ML VIAL IM PRN (02:14)
[2023-04-05] MEDS ORDERED: LOPERAMIDE HCL 2 MG CAPSULE PO PRN (02:14)
[2023-04-05] MEDS ORDERED: MAGNESIUM HYDROX 2400MG/30ML ORAL SUSPENSION 30 ML CUP PO PRN (02:14)
[2023-04-05] MEDS ORDERED: BENZOCAINE/MENTHOL (CHLORASEPTIC ) LOZENGE MM PRN (02:14)
[2023-04-05] MEDS ORDERED: BENZONATATE 200 MG CAPSULE PO PRN (02:14)
[2023-04-05] MEDS ORDERED: IBUPROFEN 600 MG TABLET (FP) PO PRN (02:14)
[2023-04-05] MEDS ORDERED: IBUPROFEN 400 MG TABLET (FP) PO PRN (02:14)
[2023-04-05] MEDS: NICOTINE 21 MG/24 HOURS TOPICAL PATCH TD SCH (10:44)
[2023-04-05] MEDS: PRENATAL VITAMINS W/ FOLIC ACID TABLET (FP) PO SCH (10:44)
[2023-04-05] MEDS: METHOCARBAMOL 500 MG TABLET PO PRN (19:29)
[2023-04-05] MEDS ORDERED: ALBUTEROL SO4 HFA INHALER IH PRN (19:41)
[2023-04-05] MEDS: methaDONE HCL 10 MG TABLET (FOR DETOX USE ONLY) PO ONE (19:44)
[2023-04-05] MEDS: MELATONIN 5 MG TABLETS PO SCH (23:25)
[2023-04-05] MEDS: THIAMINE HCL 100 MG TABLET (FP) PO SCH (23:30)
[2023-04-06] MEDS: diazePAM 5 MG TABLET PO PRN (09:52)
[2023-04-06 11:02] LABS: ALBUMIN 2.8 g/dl (3.4-5.0); BLOOD UREA NITROGEN 13.1 mg/dL (7-18)
[2023-04-06 11:05] LABS: CREATININE 0.5 mg/dL (0.55-1.3)
[2023-04-06 11:08] LABS: BILIRUBIN,TOTAL 0.4 mg/dL (0.2-1); TOT PROT 7.3 g/dl (6.4-8.2)
[2023-04-06 11:13] LABS: HEMATOCRIT 43.4 % (35.4-49); HEMOGLOBIN 14.6 GM/dL (11.7-16.9); MCHC 33.8 g/dl (32.0-35.9); MEAN CELL VOLUME 88.8 fl (80-96); MEAN PLT VOLUME 9.1 fl (7.5-11.1); PLATELET COUNT 327 10^3/uL (134-434); RBC 4.88 M/mm3 (4.00-5.60); RDW 13.1 % (11.9-15.9); WHITE BLOOD COUNT 8.4 K/mm3 (4.0-10.0)
[2023-04-06] MEDS: ONDANSETRON *ODT* 4 MG TABLET SL PRN (14:36)
[2023-04-06] MEDS: MAG HYDROX/AL HYDROX/SIMETH 30 ML UNIT-DOSE CUP PO PRN (15:08)
[2023-04-06] MEDS: DICYCLOMINE HCL 10 MG CAPSULE PO PRN (16:46)
[2023-04-06] MEDS: BISMUTH SUBSALICYLATE 524 MG/30 ML PO PRN (16:47)
[2023-04-06] MEDS: cloNIDine HCL 0.1 MG TABLET PO PRN (21:35)
[2023-04-07] MEDS: methaDONE HCL 10 MG TABLET (FOR DETOX USE ONLY) PO ONE (10:20)
[2023-04-08] MEDS: ONDANSETRON *ODT* 4 MG TABLET SL PRN (09:47)
[2023-04-08] MEDS: hydrOXYzine PAMOATE 25 MG CAPSULE (FP) PO PRN (22:09)
[2023-04-09] MEDS ORDERED: SIMETHICONE 80 MG TAB.CHEW (FP) PO PRN (06:38)
[2023-04-09] MEDS ORDERED: ONDANSETRON *ODT* 4 MG TABLET SL SCH (06:45)
[2023-04-09] MEDS: TRIMETHOBENZAMIDE HCL 200MG/2ML INJ IM ONE (06:52)
[2023-04-09] MEDS: FAMOTIDINE 20 MG TABLET PO SCH (07:00)
[2023-04-09] MEDS: ONDANSETRON *ODT* 4 MG TABLET SL SCH (07:41)
[2023-04-09 09:49] VITALS: RESP 16
[2023-04-09] MEDS: methaDONE HCL 10 MG TABLET (FOR DETOX USE ONLY) PO ONE (10:45)
[2023-04-10 06:09] VITALS: BP 118/67; PULSE 69; TEMP 98
== END 2023-04-10 08:49 | disposition home or self-care (01) | DRG 773 ==
LOC: YASAS 22:22 → Y6N 04-05 04:57
PROVIDERS: ADMIT Allergy & Immunology; ATTEND Allergy & Immunology
PROC: HZ2ZZZZ Detoxification Services for Substance Abuse Treatment (ICD-10-PCS; principal; 2023-04-05)
DX: F11.23 Opioid dependence with withdrawal (principal); F14.20 Cocaine dependence, uncomplicated; F17.210 Nicotine dependence, cigarettes, uncomplicated; F19.24 Other psychoactive substance dependence with psychoactive substance-induced mood disorder; F32.A Depression, unspecified; F41.9 Anxiety disorder, unspecified; F43.10 Post-traumatic stress disorder, unspecified; Z86.11 Personal history of tuberculosis; Z87.09 Personal history of other diseases of the respiratory system; Z28.310 Unvaccinated for COVID-19; Z28.9 Immunization not carried out for unspecified reason; Z56.0 Unemployment, unspecified; Z59.00 Homelessness unspecified
CPT/HCPCS: 36415; 71046-TC-FY; 73070-TC-LT-FY; 73070-TC-RT-FY; 73090-TC-LT-FY; 73090-TC-RT-FY; 80053; 80307; 82962; 85025; 85027; 86593; 86780; 87635; 93005; 93010; Q0162